=== PATIENT | male | born 1945 | race Caucasian/White ===

== ENCOUNTER → 2018-05-23 | Outpatient (CLI) | payer OTHER ==
[~2018-05-23] MED LIST: BICIT15L PO; LEVO500T89 PO; METF500S7 PO; Simethicone PO
== END | disposition home or self-care (01) ==
LOC: RAH 09:54
PROVIDERS: ATTEND Urology
DX: N20.2 Calculus of kidney with calculus of ureter (principal); K57.90 Diverticulosis of intestine, part unspecified, without perforation or abscess without bleeding; M47.815 Spondylosis without myelopathy or radiculopathy, thoracolumbar region; K76.0 Fatty (change of) liver, not elsewhere classified; I70.90 Unspecified atherosclerosis
CPT/HCPCS: 74018; 74176; 76100

== ENCOUNTER 2018-06-04 05:43 | Observation (INO) | payer OTHER ==
[2018-06-03 09:20] VITALS: BP 135/67
[2018-06-03 09:30] LABS: HEMATOCRIT 43.3 % (42-54); MEAN CORPUSCULAR HEMOGLOBIN 28.2 pg (27.0-33.0); MEAN CORPUSCULAR HGB CONC 32.6 g/dL (32.0-36.0); MEAN CORPUSCULAR VOLUME 86.5 fL (79-99); PLATELET COUNT (AUTO) 286 K/uL (130-400); RED BLOOD CELL COUNT(AUTO) 5.01 MIL/uL (4.50-6.20); RED CELL DISTRIBUTION WIDTH 16.1 % (11.0-15.5); WHITE BLOOD COUNT (AUTO) 8.9 K/uL (4.8-10.8)
[2018-06-03 09:34] LABS: APPEARANCE,URINE Cloudy (CLEAR); BILIRUBIN,URINE Negative (NEGATIVE); COLOR,URINE Orange (YELLOW); GLUCOSE, URINE (UA) Negative (NEGATIVE); KETONES,URINE Negative (NEGATIVE); LEUKOCYTE ESTERASE ,URINE Large (NEGATIVE); NITRATE,URINE Negative (NEGATIVE); OCCULT BLOOD,URINE Large (NEGATIVE); PROTEIN,URINE POS 2+ (NEGATIVE)
[2018-06-03 09:39] LABS: CREATININE 1.5 mg/dL (0.5-1.5); POTASSIUM 4.2 mmol/L (3.5-5.1)
[2018-06-03 09:39] LABS: BACTERIA,URINE Few /HPF (None Seen); RBC,URINE TNTC /HPF (0-1); SQUAMOUS EPITHELIAL CELL,UR Rare /HPF (0-2)
[2018-06-03 09:43] LABS: INR 1.01 (0.85-1.15); PARTIAL THROMBOPLASTIN TIME 28.4 SEC (26.3-35.5); PROTHROMBIN TIME 10.6 SEC (9.6-11.6)
[2018-06-04] VITALS (16 sets, daily range): BP systolic 114–160; BP diastolic 52–81
[~2018-06-04] VITALS: Ht 171.4 cm; Wt 101.2 kg
[~2018-06-04 05:43] MED LIST changes: +ALEN70TA10 PO; +AMOX1TAB15 PO; +ASPI-555 PO; -BICIT15L PO; +CARV3.12 PO; +ERGO500014 PO; +EYE VITAMIN PO; +FENO145T37 PO; +GLIM4TAB3 PO; -LEVO500T89 PO; +LEVO50TA11 PO; +LORA10TA7 PO; +LOSA25TA41 PO; -METF500S7 PO; +MUPI22OI2 TP; +ROSU40TA20 PO; -Simethicone PO; +TAMS0.4C32 PO
[2018-06-04] MEDS: ZOSYN 3.375GM+NS 50ML 50 ML IV SCH ×2 (06:30→07:20)
[2018-06-04] MEDS: LACTATED RINGERS 1000ML 1,000 ML IV SCH ×4 (06:53→17:20)
--- NOTE | 2018-06-04 06:59 | NUR ---
VALUABLES: CLOTHING GIVEN TO . PATIENT STATED LEFT GLASSES IN CAR. NO OTHER VALUABLES BROUGHT TO HOSPITAL.
[2018-06-04] MEDS ORDERED: MIDAZOLAM HCL 1 MG/ML 2ML VIAL ONE (07:17)
[2018-06-04] MEDS ORDERED: DEXAMETHASONE SOD PHOSPHATE 10MG/ML 1ML VIAL ONE (07:17)
[2018-06-04] MEDS ORDERED: LIDOCAINE PF 2% 5ML ABBOJECT ONE ×2 (07:17→07:18)
[2018-06-04] MEDS ORDERED: GLYCOPYRROLATE 1 MG/5 ML SYRINGE ONE (07:18)
[2018-06-04] MEDS ORDERED: ONDANSETRON HCL 4 MG/2 ML VIAL ONE (07:18)
[2018-06-04] MEDS ORDERED: FENTANYL CITRATE PF 50 MCG/1 ML 2ML VIAL ONE (07:18)
[2018-06-04] MEDS ORDERED: PROPOFOL 10 MG/ML 20ML VIAL IV ONE (07:18)
[2018-06-04] MEDS ORDERED: NEOSTIGMINE 5MG/5ML SYR IV ONE (07:18)
[2018-06-04] MEDS ORDERED: ROCURONIUM 10MG/1ML SYR 10 MG/ML ML ONE (07:18)
[2018-06-04] MEDS ORDERED: SUCCINYLCHOLINE CHLORIDE 20 MG/ML 10 ML VIAL ONE (07:20)
[2018-06-04] MEDS ORDERED: IOHEXOL-350 50ML VIAL IV ONE (07:33)
[2018-06-04] MEDS ORDERED: EPHEDRINE SULFATE 50 MG/ML AMPULE ONE (07:39)
[2018-06-04] MEDS ORDERED: MEPERIDINE-PF 25 MG/ML SYG ONE (08:55)
[2018-06-04] MEDS ORDERED: MEPERIDINE-PF 75 MG/ML SYG IM PRN (10:00)
[2018-06-04] MEDS ORDERED: ONDANSETRON HCL 4 MG/2 ML VIAL IVP PRN (10:00)
[2018-06-04] MEDS ORDERED: ACETAMINOPHEN 325 MG TAB PO PRN (10:00)
[2018-06-04] MEDS ORDERED: ACETAMINOPHEN-CODEINE 300/30MG TAB PO PRN ×2 (10:00→12:23)
[2018-06-04] MEDS: CITRIC ACID/SODIUM CITRATE 30 ML UDCUP PO SCH ×3 (13:34→20:56)
[2018-06-05 04:00] VITALS: BP 155/79
[2018-06-05 04:54] LABS: HEMATOCRIT 36.9 % (42-54); MEAN CORPUSCULAR HGB CONC 33.4 g/dL (32.0-36.0); MEAN CORPUSCULAR VOLUME 86.8 fL (79-99); PLATELET COUNT (AUTO) 244 K/uL (130-400); RED BLOOD CELL COUNT(AUTO) 4.25 MIL/uL (4.50-6.20); RED CELL DISTRIBUTION WIDTH 16.1 % (11.0-15.5); WHITE BLOOD COUNT (AUTO) 8.5 K/uL (4.8-10.8)
[2018-06-05 05:00] LABS: CREATININE 1.4 mg/dL (0.5-1.5)
[2018-06-05] MEDS ORDERED: LEVOTHYROXINE 50 MCG TABLET PO SCH (07:30)
[2018-06-05 08:00] VITALS: BP 151/72
[2018-06-05] MEDS ORDERED: GLIMEPIRIDE 2 MG TABLET PO SCH (08:00)
[2018-06-05] MEDS ORDERED: CARVEDILOL 3.125 MG TABLET PO SCH (09:00)
[2018-06-05] MEDS ORDERED: LORATADINE 10 MG TABLET PO SCH (09:00)
[2018-06-05] MEDS ORDERED: LOSARTAN 50 MG TABLET PO SCH (09:00)
[2018-06-05] MEDS ORDERED: TAMSULOSIN HCL 0.4 MG CAP.ER.24H PO SCH (09:00)
[2018-06-05] MEDS ORDERED: ASPIRIN 81MG TAB.CHEW PO SCH (09:00)
[2018-06-05] MEDS: CITRIC ACID/SODIUM CITRATE 30 ML UDCUP PO SCH (09:09)
[2018-06-05 11:00] VITALS: BP 160/94
[2018-06-05 16:00] VITALS: BP 161/77
[2018-06-05] MEDS ORDERED: ROSUVASTATIN CALCIUM 40 MG PO SCH (21:00)
[2018-06-05] MEDS ORDERED: FENOFIBRATE NANOCRYSTALLIZED 145 MG TAB PO SCH (21:00)
[2018-06-07] MEDS ORDERED: ALENDRONATE SODIUM 35 MG TAB PO SCH (06:00)
[2018-06-09] MEDS ORDERED: ERGOCALCIFEROL (VITAMIN D2) 50,000 UNIT CAPSULE PO SCH (09:00)
== END 2018-06-05 17:33 | disposition home or self-care (01) ==
LOC: DAH 05:43 → DAHIP 05:44 → 4BH 09:42
PROVIDERS: ADMIT Urology; ATTEND Urology
DX: N20.2 Calculus of kidney with calculus of ureter (principal); N35.919 Unspecified urethral stricture, male, unspecified site; I10 Essential (primary) hypertension; E03.9 Hypothyroidism, unspecified; E78.5 Hyperlipidemia, unspecified; Z87.442 Personal history of urinary calculi; Z96.0 Presence of urogenital implants; Z79.01 Long term (current) use of anticoagulants
CPT/HCPCS: 36415 ×2; 52352; 71046; 74420; 80048 ×2; 81001; 82948 ×7; 85027 ×2; 85610; 85730; 87088; 88108; 88305; 93005; A4354; A4358; A4600; A4649; C1751; C1758; C1769 ×2; C2617; G0378 ×36; J0330; J1100; J2001 ×2; J2175; J2250; J2405; J2543; J2704; J2710; J3010; J3490 ×2; J7030; J7120 ×5; Q9967

== ENCOUNTER → 2021-09-15 | Outpatient (CLI) | payer OTHER ==
[~2021-09-15] MED LIST changes: -ALEN70TA10 PO; +ALEN70TA80 PO; -ASPI-555 PO; +ASPI-556 PO; +FENO145T26 PO; -FENO145T37 PO; -GLIM4TAB3 PO; +GLIM4TAB36 PO; -ROSU40TA20 PO; +ROSU40TA21 PO
== END | disposition home or self-care (01) ==
LOC: SHCH 12:38
PROVIDERS: ATTEND Student in an Organized Health Care Education/Training Program
DX: I36.1 Nonrheumatic tricuspid (valve) insufficiency (principal); I11.9 Hypertensive heart disease without heart failure; E11.9 Type 2 diabetes mellitus without complications; E78.5 Hyperlipidemia, unspecified; E66.9 Obesity, unspecified; R94.31 Abnormal electrocardiogram [ECG] [EKG]
CPT/HCPCS: 93306

== ENCOUNTER → 2022-01-03 | Outpatient (CLI) | payer OTHER, MEDICARE ==
[2022-01-03 12:47] LABS: CHOLESTEROL 267 mg/dL (<200); HDL CHOLESTEROL 32 mg/dL (29-71); LDL DIRECT 67 mg/dL (0-99); TRIGLYCERIDES 1360 mg/dL (30-200)
== END | disposition home or self-care (01) ==
LOC: LAB 11-11 14:16
PROVIDERS: ATTEND Student in an Organized Health Care Education/Training Program
DX: E78.2 Mixed hyperlipidemia (principal)
CPT/HCPCS: 36415; 80061

== ENCOUNTER → 2023-01-16 | Outpatient (CLI) | payer OTHER, MEDICARE ==
[2023-01-16 12:23] LABS: CHOLESTEROL 206 mg/dL (<200); HDL CHOLESTEROL 30 mg/dL (29-71); LDL DIRECT 94 mg/dL (0-99); TRIGLYCERIDES 531 mg/dL (30-200)
== END | disposition home or self-care (01) ==
LOC: LAB 11:08
PROVIDERS: ATTEND Student in an Organized Health Care Education/Training Program
DX: E78.2 Mixed hyperlipidemia (principal)
CPT/HCPCS: 36415; 80061

== ENCOUNTER → 2023-11-14 | Outpatient (CLI) | payer OTHER, MEDICARE ==
[~2023-11-14] MED LIST changes: -ROSU40TA21 PO; +ROSU40TA70 PO
[2023-11-14 16:34] LABS: CHOLESTEROL 145 mg/dL (<200); HDL CHOLESTEROL 44 mg/dL (29-71); LDL DIRECT 77 mg/dL (0-99); TRIGLYCERIDES 196 mg/dL (30-200)
== END | disposition home or self-care (01) ==
LOC: LAB 14:08
PROVIDERS: ATTEND Student in an Organized Health Care Education/Training Program
DX: E78.1 Pure hyperglyceridemia (principal); E78.5 Hyperlipidemia, unspecified
CPT/HCPCS: 36415; 80061